=== PATIENT | male | born 1945 | race Caucasian/White ===

== ENCOUNTER 2017-03-11 15:00 | Emergency (ER) | payer OTHER | END 2017-03-11 21:00 | disposition home or self-care (01) | LOC: ER 15:00 | DX: T67.5XXA Heat exhaustion, unspecified, initial encounter (principal); E86.0 Dehydration; X32.XXXA Exposure to sunlight, initial encounter; Y93.H1 Activity, digging, shoveling and raking; Z85.118 Personal history of other malignant neoplasm of bronchus and lung; E78.5 Hyperlipidemia, unspecified; Z88.0 Allergy status to penicillin; Z88.5 Allergy status to narcotic agent; Z88.8 Allergy status to other drugs, medicaments and biological substances; Z88.6 Allergy status to analgesic agent ==